=== PATIENT | female | born 1985 | race Caucasian/White ===

== ENCOUNTER 2017-08-08 18:40 | Emergency (ER) | payer OTHER ==
[~2017-08-08 18:40] MED LIST: AMOX1TAB61 PO; GABA-585 PO; NAPR500T8 PO
[2017-08-08 19:35] VITALS: BP 130/78
--- NOTE | 2017-08-08 20:08 | PHYS DOC ---
Past Medical History Past Medical History: Constipation Past Surgical History: Cholecystectomy, Tonsillectomy, Other Additional Past Surgical Histo: D&C, tubes in ears Alcohol Use: None Drug Use: Marijuana Adult General Chief Complaint Chief Complaint: SORE THROAT HPI HPI Patient is a 32 year old female with no significant medical history who presents today complaining of sores in her mouth that she noted one week ago. Patient is also complaining of a sore throat since yesterday. Patient is 32 weeks and follows up with Dr. Farrell CORPORATE MANAGER. Denies any other symptoms related to her . Review of Systems Review of Systems Constitutional: Denies fever or chills [] Eyes: Denies change in visual acuity, redness, or eye pain [] HENT: Reports sore in her mouth and sore throat. Denies any congestion. [] Respiratory: Denies cough or shortness of breath [] Cardiovascular: No additional information not addressed in HPI [] GI: Denies abdominal pain, nausea, vomiting, bloody stools or diarrhea [] : Denies dysuria or hematuria [] Musculoskeletal: Denies back pain or joint pain [] Integument: Denies rash or skin lesions [] Neurologic: Denies headache, focal weakness or sensory changes [] All other systems were reviewed and found to be within normal limits, except as documented in this note. Allergies Allergies Allergies Coded Allergies Type Severity Reaction Last Updated Verified No Known Drug Allergies 04/30/16 No Physical Exam Physical Exam Constitutional: Well developed, well nourished, no acute distress, non-toxic appearance. [] HENT: Normocephalic, atraumatic, bilateral external ears normal, oropharynx moist, no oral exudates, nose normal. [] Small amount of stomatitis lesions noted on the lateral aspect of the tongue. Eyes: PERRLA, EOMI, conjunctiva normal, no discharge. [] Neck: Normal range of motion, no tenderness, supple, no stridor. [] Cardiovascular:Heart rate regular rhythm, no murmur [] Lungs & Thorax: Bilateral breath sounds clear to auscultation [] Abdomen: Bowel sounds normal, soft, no tenderness, no masses, no pulsatile masses. [] Skin: Warm, dry, no erythema, no rash. [] Back: No tenderness, no CVA tenderness. [] Extremities: No tenderness, no cyanosis, no clubbing, ROM intact, no edema. [] Neurologic: Alert and oriented X 3, normal motor function, normal sensory function, no focal deficits noted. [] Psychologic: Affect normal, judgement normal, mood normal. [] EKG EKG [] Radiology/Procedures Radiology/Procedures [] Course & Med Decision Making Course & Med Decision Making Pertinent Labs and Imaging studies reviewed. (See chart for details) Patient is in the ED with sore throat as well as stomatitis lesions. She is currently 32 weeks . Her symptoms are likely viral. Negative rapid strep. Instructed to use saltwater gargles and take Tylenol as needed for pain. Follow-up with her PCP as well as CORPORATE MANAGER in 1-2 weeks. Dragon Disclaimer Dragon Disclaimer This electronic medical record was generated, in whole or in part, using a voice recognition dictation system. Departure Departure Impression: Primary Impression: Stomatitis Additional Impression: Viral pharyngitis Disposition: 01 HOME, SELF-CARE Condition: STABLE Referrals: NO PCP (PCP) followup with your OBGYN and primary care doctor in one week Patient Instructions: Stomatitis, [id number], Viral Pharyngitis Additional Instructions: You were seen with stomatitis lesions and a viral sore throat. Gargle with salt water. Take Tylenol for pain. This symptoms will run their own course. Follow- up with your CORPORATE MANAGER and primary care doctor in 1-2 weeks. Problem Qualifiers ALYSHA LAU APRN Aug 08, 2017 20:08
[2017-08-09 08:06] LABS: NEGATIVE OBC STREP NEG; POSITIVE OBC STREP POS
== END 2017-08-08 20:20 | disposition home or self-care (01) ==
LOC: ER 18:40
DX: O99.513 Diseases of the respiratory system complicating pregnancy, third trimester (principal); J02.8 Acute pharyngitis due to other specified organisms; B97.89 Other viral agents as the cause of diseases classified elsewhere; K12.1 Other forms of stomatitis; O99.323 Drug use complicating pregnancy, third trimester; F12.10 Cannabis abuse, uncomplicated; Z3A.32 32 weeks gestation of pregnancy
CPT/HCPCS: 87070; 87880; 99283

== ENCOUNTER 2018-03-03 18:23 | Emergency (ER) | payer SELFPAY, OTHER ==
[2018-03-03] MEDS: PENICILLIN G BENZATHINE LA 1,200,000 UNIT/2 ML DISP.SYRIN. IM (19:05)
== END 2018-03-03 19:14 | disposition home or self-care (01) ==
LOC: ER 18:23
DX: O99.511 Diseases of the respiratory system complicating pregnancy, first trimester (principal); J02.9 Acute pharyngitis, unspecified; F12.10 Cannabis abuse, uncomplicated; Z90.49 Acquired absence of other specified parts of digestive tract; Z90.89 Acquired absence of other organs; Z79.2 Long term (current) use of antibiotics; Z3A.00 Weeks of gestation of pregnancy not specified
CPT/HCPCS: 96372; 99283; J0561

== ENCOUNTER 2019-09-09 13:43 | Emergency (ER) | payer SELFPAY ==
[~2019-09-09] VITALS: Ht 157.5 cm; Wt 81.6 kg
[~2019-09-09 13:43] MED LIST changes: +HYDR-3164 PO; +NAPR-514 PO
[2019-09-09 14:30] VITALS: BP 127/58
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
[2019-09-09] MEDS: HYDROcodone/APAP 5/325MG 1 TAB TABLET PO ONE (15:09)
[2019-09-09] MEDS: ACETAMINOPHEN 325 MG TABLET. PO ONE (15:10)
[2019-09-09 15:17] LABS: INFLUENZA A PATIENT POSITIVE (NEGATIVE); INFLUENZA B PATIENT NEGATIVE (NEGATIVE)
[2019-09-09] MEDS ORDERED: HYDR-3164 PO (15:27)
[2019-09-09] MEDS ORDERED: VENTOLIN HFA18 GM INH (15:27)
[2019-09-09] MEDS ORDERED: BENZ100C PO (15:27)
== END 2019-09-09 15:56 | disposition home or self-care (01) ==
LOC: ER 13:43
DX: J10.1 Influenza due to other identified influenza virus with other respiratory manifestations (principal); R50.9 Fever, unspecified; R05 Cough; F12.90 Cannabis use, unspecified, uncomplicated; Z90.49 Acquired absence of other specified parts of digestive tract; Z90.89 Acquired absence of other organs; Z98.890 Other specified postprocedural states
CPT/HCPCS: 87804; 99284

== ENCOUNTER 2021-07-21 08:06 | Emergency (ER) | payer SELFPAY ==
[~2021-07-21] VITALS: Ht 157.5 cm; Wt 88.6 kg
[~2021-07-21 08:06] MED LIST changes: +BENZ100C PO; +VENTOLIN HFA18 GM INH
[2021-07-21 08:24] VITALS: BP 145/89
[2021-07-21] MEDS ORDERED: ACETAMINOPHEN 500 MG TABLET PO ONE (08:45)
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
== END 2021-07-21 09:22 | disposition home or self-care (01) ==
LOC: ER 08:06
DX: S01.81XA Laceration without foreign body of other part of head, initial encounter (principal); S00.33XA Contusion of nose, initial encounter; F17.200 Nicotine dependence, unspecified, uncomplicated; W20.8XXA Other cause of strike by thrown, projected or falling object, initial encounter; Y93.89 Activity, other specified; Y92.89 Other specified places as the place of occurrence of the external cause; Y99.8 Other external cause status
CPT/HCPCS: 12013; 99282